=== PATIENT | female | born 1990 | race Caucasian/White ===

== ENCOUNTER 2022-11-27 14:39 | Emergency (ER) | payer MEDICAID ==
[~2022-11-27] VITALS: Ht 154.9 cm; Wt 68.0 kg
[2022-11-27 14:46] VITALS: BP_SYST 136
--- NOTE | 2022-11-27 15:52 | NUR ---
DR MCFADDEN IN ROOM FOR EXAM.
[2022-11-27] MEDS ORDERED: OMEP20CA15 PO (15:54)
[2022-11-27] MEDS ORDERED: POLYTRIM EACH EYE (15:54)
--- NOTE | 2022-11-27 16:35 | NUR ---
Patient given written and verbal discharge instructions and verbalizes understanding. ER MD discussed with patient the results and treatment provided. Patient in stable condition. ID arm band removed. Rx of POLYMYXIN/OMEPRAZOLE given. Patient educated on pain management and to follow up with PMD. Pain Scale . Opportunity for questions provided and answered. Medication side effect fact sheet provided.
[2022-11-27 17:23] VITALS: BP_SYST 136
== END 2022-11-27 17:23 | disposition home or self-care (01) ==
LOC: SED 14:39
DX: H10.89 Other conjunctivitis (principal); K21.9 Gastro-esophageal reflux disease without esophagitis; Z79.899 Other long term (current) drug therapy
CPT/HCPCS: 99283